=== PATIENT | male | born 1985 | race Hispanic/Latino ===

== ENCOUNTER 2016-05-20 09:39 | Emergency (ER) | payer OTHER ==
[~2016-05-20] VITALS: Ht 170.2 cm; Wt 59.1 kg
[~2016-05-20 09:39] MED LIST: ALBU8.5H2 INHALATION; AZIT500T5 PO; CEFD300C3 PO; PRED-508 PO
[2016-05-20 09:51] VITALS: BP 159/87; PULSE 112; RESP 22; O2SAT 91
--- NOTE | 2016-05-20 10:14 | ED.REPORT ---
HPI-General Illness Date of Service May 20, 2016 ED Provider: Melonie Lombarod MD Patient is a 31-year-old male who reports to the ED via [place] police experiencing methamphetamine withdrawal and needs clearance for long-term. Patient has a history of heroin and meth use, and also has asthma. He last smoked heroin last night and meth yesterday. He uses an inhaler for asthma. Patient is currently intoxicated and via police is experiencing withdrawal symptoms including fever, cough, malaise, and wheezing. Nursing Notes Stated Complaint: FIT FOR [facility] Chief Complaint: General Complaint Nursing Notes Reviewed: Yes Allergies: Coded Allergies: venom-honey bee (Unverified Allergy, Unknown, 12/05/15) Scheduled Albuterol HFA (Proair HFA) 8.5 Gm Hfa.aer.ad 2 PUFFS INHALATION Q4H Azithromycin (Azithromycin) 500 Mg Tablet 500 MG PO DAILY Cefdinir (Cefdinir) 300 Mg Capsule 300 MG PO BID Prednisone (Deltasone) 20 Mg Tablet 20 MG PO DAILY Prednisone (PredniSONE) 20 Mg Tablet 40 MG PO DAILY Sulfamethoxazole/Trimeth 800-160 mg (Bactrim DS) 1 Each Tablet 1 TABLET PO BID General Time Seen by MD: 10:11 Chief Complaint Other (Heroin and meth withdrawal) Hx Obtained From: Patient, Police Arrived By: Police Sudden in Onset?: Yes Onset Occurred: Just prior to arrival Symptom Duration: Since onset Severity: Current: Mild Similar Sx Previous: No Past Medical History Past Medical History Walking Pneumonia Smoking History Current Every Day Smoker Social History Alcohol Use: "Social" Drug Use: IV drugs, Meth, Other (heroin) Ambulatory Status Independent Review of Systems Unable to Obtain ROS Intoxicated Physical Exam Vital Signs Vital Signs Date Time Temp Pulse Resp B/P Pulse Ox O2 Delivery O2 Flow Rate FiO2 05/20/16 13:25 36.8 84 20 112/55 91 Room Air 05/20/16 13:09 84 20 112/55 91 05/20/16 10:55 95 21 91 Room Air 05/20/16 09:51 36.8 112 22 159/87 91 Room Air Initial VS: Reviewed Head / Eyes: Atraumatic, Normocephalic, PERRL ENT: Mucous membranes moist, Conjunctiva normal, No scleral icterus Abdomen / GI: Soft, Non-tender, No guarding, No rebound, No distention Extremities: Vascular intact, Neuro intact, No swelling, No tenderness Appearance / Presentation: Positive: Intoxicated Wheezing / Retractions: Positive: Wheeze insp/exp diffuse (bilateral) Rales / Rhonchi: Positive: Rales bilateral bases Cardiovascular: No murmurs Heart Rate / Rhythm: Positive: Tachycardia Color / Condition: Positive: Rash present (superficial cellulitis on face ) Interpretation & Diagnostics Lab Results Interpretation Lab Results Interpretation: negative for influenza A & B X-Ray Chest Interpretation Chest Xray Interpretation: MPRESSION: As the posterior aspect of the lung base on lateral view is stable in appearance. Recommend CT scan of the chest with contrast to exclude lung mass. Dictated by: Vero Huang MD, PhD on 05/20/2016 at 11:14 Approved by: Vero Huang MD, PhD on 05/20/2016 at 11:15 View: Portable Interpretation / Wet Read by: Interpret - Radiologist Re-Eval/Medical Decision Med Decision/Clinical Course quite somnolent, expect this is the first sleep he has had in days. His sats drop to 90 while sleeping with deep even and regular breathing. He is rousable and is cooperative once awake. Sats are 95-96% when awake and talking. safe for transfer to long-term at this point Time of Eval: 12:39 Re-Evaluation/Progress Note: Pt rechecked. Informed pt of diagnosis and plan for treatment. Pt understands and agrees with plan. F/U and RTER warnings given. All questions addressed. Counseled Regarding: Diagnosis, Lab results, Need for follow-up, When/why to return to ED Discharge & Departure Primary Impression: Acute asthma exacerbation Additional Impressions: Methamphetamine use Heroin use Impetigo Disposition: [facility]/LAW ENFORCEMENT Discharge Condition All VS Reviewed: Yes Condition: Stable Additional Instructions: You have impetigo from your meth use. Use septra DS am and pm for 10 days You are having an acute asthma exacerbation that is worse due to your drug use. Use your pro-air/albuterol inhaler 2 puffs 3 times per day. You got 60mg of prednisone today and will need 40mg daily for the next 4 days. If you are interested in treatment for your heroin addiction, you can consider following up with [facility] for suboxone therapy. Your chest xray shows a density in the lung base that has been present before and is not changed. In the future, you will need to discuss this with a primary care doctor and that doctor may consider additional imaging to sort through this. You are medically cleared for long-term. Referrals: [facility] (PCP) Scribe Attestation Portion of this note were transcribed by Lorin Orr. I, Dr. Lombardo, personally performed the history, physical exam, and medical decision-making: I reviewed and confirmed the accuracy for the information in the transcribed note. Signed by: mar Mcleod, 05/20/16 1245 Melonie Lombardo MD May 20, 2016 10:14 LORIN ORR May 20, 2016 10:47
[2016-05-20] MEDS ORDERED: Albuterol-Ipratropium 3 mL Inhalation Solution NEB ONE (10:35)
[2016-05-20] MEDS ORDERED: Trimethoprim-Sulfa 160 mg-800 mg Tablet PO ONE (10:50)
[2016-05-20 10:55] VITALS: PULSE 95; RESP 21; O2SAT 91
--- NOTE | 2016-05-20 11:17 | DRSVH ---
PROCEDURE: X-RAY CHEST, TWO VIEWS ([id number]) INDICATIONS: dyspnea TECHNIQUE: 2 views of the chest were acquired. COMPARISON: [facility], CR, XR CHEST 2VW, 05/31/2015, 21:41. FINDINGS: Surgical changes and devices: None. Lungs and pleura: No pleural effusions or pneumothorax. Opacity in the posterior aspect of the lung base and lateral view is again noted. Mediastinum: Mediastinal contours are normal. Heart size is normal. Bones and chest wall: No suspicious bony abnormalities. Soft tissues appear unremarkable. IMPRESSION: As the posterior aspect of the lung base on lateral view is stable in appearance. Recomme nd CT scan of the chest with contrast to exclude lung mass. Dictated by: Vero Huang MD, PhD on 05/20/2016 at 11:14 Approved by: Vero Huang MD, PhD on 05/20/2016 at 11:15
[2016-05-20] MEDS ORDERED: SULF1TAB7 PO (12:26)
[2016-05-20] MEDS ORDERED: PRE20 PO (12:26)
[2016-05-20] MEDS ORDERED: predniSONE 20 mg Tablet PO ONE (12:35)
[2016-05-20 13:09] VITALS: BP 112/55; PULSE 84; RESP 20; O2SAT 91
[2016-05-20 13:25] VITALS: BP 112/55; PULSE 84; RESP 20; O2SAT 91
== END 2016-05-20 13:34 ==
LOC: SED 09:39
DX: J45.901 Unspecified asthma with (acute) exacerbation (principal); F15.10 Other stimulant abuse, uncomplicated; F11.90 Opioid use, unspecified, uncomplicated; L01.00 Impetigo, unspecified; F17.200 Nicotine dependence, unspecified, uncomplicated; Z91.030 Bee allergy status
CPT/HCPCS: 71020; 87804; 94664; 99284; J7620